=== PATIENT | male | born 1950 | race Caucasian/White ===

== ENCOUNTER → 2021-09-19 | Outpatient (CLI) | payer MEDICARE, OTHER ==
--- NOTE | 2021-09-19 13:23 | US ---
EXAMINATION TYPE: US extremity nonvasculr ltd LT DATE OF EXAM: 09/19/2021 COMPARISON: NONE CLINICAL HISTORY: M25.562 Knee pain. Patient states he tripped over gas pump x 2 months ago. Sometim es gets pain. Posterior left knee scanned. Fluid collection visualized= 2.8 x 2.2 x 1.0 cm. IMPRESSION: Church's cyst noted.
== END | disposition home or self-care (01) ==
LOC: RADUSWWP 13:00
PROVIDERS: ATTEND Family Medicine
DX: M71.22 Synovial cyst of popliteal space [Baker], left knee (principal)

== ENCOUNTER → 2024-02-12 | Outpatient (CLI) | payer MEDICARE | END | disposition home or self-care (01) | LOC: LABWHC1 11:49 | PROVIDERS: ATTEND Orthopaedic Surgery | DX: Z01.812 Encounter for preprocedural laboratory examination (principal) | CPT/HCPCS: 36415; 83036; 87070 ==